=== PATIENT | female | born 1985 | race Asian ===

== ENCOUNTER → 2022-06-16 | Outpatient (CLI) | payer OTHER ==
[2022-06-16 17:17] LABS: HCG,Qualitative Serum Not Detected
[2022-06-16 22:55] LABS: Estradiol 25.9 pg/mL; Follicle Stimulating Hormone 5.9 mIU/mL; Luteinizing Hormone 16.1 mIU/mL
== END | disposition home or self-care (01) ==
LOC: LABWHC1 16:06
DX: N97.9 Female infertility, unspecified (principal)
CPT/HCPCS: 36415; 82670; 83001; 83002; 84144; 84703

== ENCOUNTER → 2023-01-25 | Outpatient (CLI) | payer OTHER ==
--- NOTE | 2023-01-30 19:44 | MM ---
Reason for Exam: Screening (asymptomatic). Last screening mammogram was performed 12 month(s) ago. Patient History: Menarche at age 13. First Full-Term at age 36. Late child-bearing (after 30). Premenopausal. Patient tested for BRCA2 outcome was positive. US breast needle core RT on the Right side. Paternal aunt had ovarian cancer under age 50. Paternal cousin had breast cancer under age 50. Prior Study Comparison: 01/28/2022 Bilateral Screening Mammogram, [facility]. Tissue Density: There are scattered fibroglandular densities. Findings: Analyzed By CAD. Microclip central posterior aspect of the right breast from prior biopsy. There is no suspicious group of microcalcifications or new suspicious mass in either breast. Overall Assessment: Negative, BI-RAD 1 Management: Screening Mammogram of both breasts in 1 year. See note below regarding increased lifetime risk. Patient should continue monthly self-breast exams. A clinical breast exam by your physician is recommended on an annual basis. This exam should not preclude additional follow-up of suspicious palpable abnormalities. Note on lifetime risk: If overall lifetime risk for the development of breast cancer is 20% or higher, the patient may qualify for future screening with alternating mammogram and breast MRI. Electronically signed and approved by: Nemesio Tyson M.D. Radiologist
== END | disposition home or self-care (01) ==
LOC: RADMAMWWP 14:40
PROVIDERS: ATTEND Surgery
DX: Z12.31 Encounter for screening mammogram for malignant neoplasm of breast (principal); Z80.3 Family history of malignant neoplasm of breast
CPT/HCPCS: 77063; 77067

== ENCOUNTER → 2023-02-02 | Outpatient (CLI) | payer OTHER ==
--- NOTE | 2023-02-02 15:44 | P.GSHP ---
History of Present Illness H&P Date: 02/02/23 Chief Complaint: BRCA2 mutation Iesha is a 38 year old female who had a bilateral mammogram on 01-25-23 which was BIRAD 1. She had genetic testing done in September 2011 and was found to carry a mutation in the BRCA2 gene. This was done as a paternal cousin was diagnosed with breast cancer at 34, and was noted to be BRCA2 positive. She has not felt any lumps masses or nodules of concern in either breast. She had a breast biopsy when she was 11 months , this was a needle core biopsy and it was benign. She is not complaining of any nipple discharge or skin changes. She is not complaining of any trauma or infection in her breast. She moved in 2021 from [place] where she was following with a breast surgeon, Vero Toledo. At that time she was having yearly mammograms. Caffeine: 1 cup coffee/day nicotine: never chocolate: occasional BCP: used them in her teens, visiting a fertility specialist used it last year was Family History: paternal cousin: breast cancer at 34 BRCA 2 + paternal aunt: ovarian cancer mother: uterine cancer Hormonal History: menarche: 13 , age at first :36, breast fed: yes periods irregular has cystic ovarian disease control pills: Used them in her teens, and use them when she was visiting a fertility specialist the last time was approximately a year ago Hormones: none Surgical history: left adrenalectomy 2016 [place] disease ([facility]) Medical History: Cystic ovarian disease Social History: nicotine: none Heart: Negative Drugs:negative - Constitutional Constitutional: Denies chills, Denies fever - EENT Eyes: denies blurred vision, denies pain Ears: deny: decreased hearing, tinnitus Ears, nose, mouth and throat: Denies headache, Denies sore throat - Breasts Breasts: bilateral: as per HPI - Cardiovascular Cardiovascular: Denies chest pain, Denies shortness of breath - Respiratory Respiratory: Denies cough, Denies 7 - Gastrointestinal Gastrointestinal: Denies abdominal pain, Denies diarrhea, Denies nausea, Denies vomiting - Genitourinary (Female) Genitourinary: Denies dysuria, Denies hematuria - Menstruation Comment: LMP: January 18 last about 1 week Menstruation: Reports cycle variable - Musculoskeletal Musculoskeletal: Denies myalgias - Integumentary Comment: Eczema of the family, he has some itching over her lower shins - Neurological Neurological: Denies numbness, Denies weakness - Psychiatric Psychiatric: Reports anxiety - Endocrine Comment: hair loss Endocrine: Reports fatigue, Denies weight change - Hematologic/Lymphatic Comment: none - Allergic/Immunologic Allergic/Immunologic: Reports seasonal allergies Medications and Allergies Home Medications Medication Instructions Recorded Confirmed Type Fexofenadine HCl [Shabana Allergy] 1 tab PO DAILY 02/02/23 02/02/23 History Multivitamin [Multivitamins Adult 1 tab PO DAILY 02/02/23 02/02/23 History Gummies] metFORMIN HCL 500 mg PO DAILY 02/02/23 02/02/23 History Allergies Allergy/AdvReac Type Severity Reaction Status Date / Time metoclopramide [From Reglan] Allergy Unknown Unverified 02/02/23 14:50 Pork/Porcine Containing Allergy Unknown Unverified 02/02/23 14:50 Products Childhood [Pork] Surgical - Exam - General no distress - Eyes normal ocular movement - ENT no hearing loss - Neck trachea midline - Respiratory normal respiratory effort, clear to auscultation - Cardiovascular Rhythm: regular Heart Sounds: normal: S1, S2 - Abdomen Abdomen: soft, non tender, no guarding, no rigid, no rebound - Integumentary normal turgor - Neurologic no disoriented, no combative - Musculoskeletal normal gait, normal posture - Psychiatric oriented to time, oriented to person, oriented to place, speech is normal, memory intact Breast Exam: Bra: 36C Inspection: Bilateral grade 2 ptosis Palpation: Right breast: Multi-positional exam fibrocystic changes no dominant masses or nodules of concern Right axilla: No adenopathy of concern Left breast: Multi-positional exam fibrocystic changes no dominant masses or nodules of concern Left axilla: No adenopathy of concern Results Mammogram results reviewed from 6123 benign BIRADS 1 Assessment and Plan Assessment: Impression: 38-year-old BRCA2 positive patient for questions about surveillance, risk r eduction Plan: We have discussed the increased risk of breast and ovarian cancer. We have discussed the followin. Chemoprophylaxis with tamoxifen 2. Risk reducing surgery including bilateral salpingo-oophorectomy and bilateral mastectomy 3. Close surveillance with mammogram alternating with MRI every 6 months and clinical breast exams 4. Ovarian surveillance with every 6 month CEA 125 and transvaginal ultrasound At this time the patient would like to have another child. She does not want to do anything which would alter her ability to get . She would prefer to have close surveillance. We will therefore plan on: 1. Alternating MRI and mammogram every 6 months with clinical breast exam 2. Establish relationship with a etch operator semiconductor wafers to monitor for ovarian cancer 3. Appointment with lehr loader to more thoroughly reviewing her BRCA2 status 4. Patient to follow-up immediately if she notes anything of concern
[2023-02-02 15:47] VITALS: BP 121/78; PULSE 74; RESP 17; TEMP 98
== END ==
LOC: WWCWWP 13:28
PROVIDERS: ATTEND Surgery
DX: Z15.02 Genetic susceptibility to malignant neoplasm of ovary (principal); Z80.3 Family history of malignant neoplasm of breast; Z15.01 Genetic susceptibility to malignant neoplasm of breast; Z79.84 Long term (current) use of oral hypoglycemic drugs; Z88.8 Allergy status to other drugs, medicaments and biological substances; Z91.018 Allergy to other foods

== ENCOUNTER → 2023-04-04 | Outpatient (CLI) | payer OTHER ==
[2023-04-04 17:10] LABS: HCT 33.8 % (37.2-46.3); MCH 28.8 pg (27.0-32.0); MCHC 32.5 d/dL (32.0-37.0); MCV 88.5 FL (80.0-97.0); Mean Platelet Volume 11.8 FL (9.5-12.2); NRBC Per 100 WBC 0 X 10*3/uL (0.00-0.01); Platelet Count 252 X 10*3/uL (140-440); RBC 3.82 X 10*6/uL (4.10-5.20); RDW 13.7 % (11.5-14.5); WBC 6.14 X 10*3/uL (4.50-10.00)
[2023-04-04 17:33] LABS: ALT 13 U/L (8-44); AST 15 U/L (13-35); Albumin 4.5 d/dL (3.8-4.9); Albumin/Globulin Ratio 1.61 Ratio (1.60-3.17); Alkaline Phosphatase 60 U/L (41-126); BUN/Creat Ratio 16.67 Ratio (12.00-20.00); Calcium 9.4 mg/dL (8.7-10.3); Carbon Dioxide 23.5 mmol/L (21.6-31.8); Chloride 106 mmol/L (96-109); Globulin 2.8 d/dL (1.6-3.3); Glucose 90 mg/dL (70-110); Potassium 4.1 mmol/L (3.5-5.5); Sodium 139 mmol/L (135-145); T4, Free (Free Thyroxine) 1.45 ng/dL (0.80-1.80); Total Bilirubin 0.4 mg/dL (0.3-1.2); Total Protein 7.3 d/dL (6.2-8.2)
[2023-04-05 21:23] LABS: ACTH 11.7 pg/mL (0.00-45.99)
== END | disposition home or self-care (01) ==
LOC: LABWHC1 11:59
PROVIDERS: ATTEND Internal Medicine Endocrinology, Diabetes & Metabolism
DX: E24.0 Pituitary-dependent Cushing's disease (principal); N91.2 Amenorrhea, unspecified; R53.83 Other fatigue
CPT/HCPCS: 36415; 80053; 82024; 82533; 82607; 82627; 83036; 83498; 84146; 84305; 84439; 84443; 84480; 85027

== ENCOUNTER → 2023-04-09 | Outpatient (CLI) | payer OTHER ==
[2023-04-09 19:16] LABS: Basophils # (A) 0.03 X 10*3/uL (0.00-0.10); Basophils % (A) 0.6 %; Eosinophils # (A) 0.26 X 10*3/uL (0.04-0.35); Eosinophils % (A) 5.4 %; HCT 35.9 % (37.2-46.3); HGB 11.5 d/dL (12.0-15.0); Lymphocytes # (A) 1.45 X 10*3/uL (0.90-5.00); MCH 28.3 pg (27.0-32.0); MCV 88.4 FL (80.0-97.0); Mean Platelet Volume 11.4 FL (9.5-12.2); Monocytes # (A) 0.42 X 10*3/uL (0.20-1.00); Monocytes % (A) 8.7 %; NRBC Per 100 WBC 0 X 10*3/uL (0.00-0.01); Neutrophils # (A) 2.66 X 10*3/uL (1.80-7.70); Neutrophils % (A) 55.1 %; Platelet Count 271 X 10*3/uL (140-440); RBC 4.06 X 10*6/uL (4.10-5.20); RDW 13.4 % (11.5-14.5); WBC 4.83 X 10*3/uL (4.50-10.00)
[2023-04-09 20:20] LABS: % Iron Saturation 15.31 (12.00-45.00); Ferritin 78.8 ng/mL (10.0-291.0)
== END | disposition home or self-care (01) ==
LOC: LABWHC1 11:27
PROVIDERS: ATTEND Internal Medicine Endocrinology, Diabetes & Metabolism
DX: E61.1 Iron deficiency (principal); D53.8 Other specified nutritional anemias; R53.83 Other fatigue
CPT/HCPCS: 36415; 82180; 82306; 82728; 82746; 83540; 83550; 85025

== ENCOUNTER → 2023-08-08 | Outpatient (CLI) | payer OTHER ==
--- NOTE | 2023-08-13 08:21 | BMR ---
EXAM DATE: 08/09/2023 EXAM DESCRIPTION: MRI-Breast Bilat (W/WO Contrast) INDICATION: Genetic susceptibility to breast cancer (BRCA2 mutation positive). High-risk screening. COMPARISON: Prior examination dated 01/25/2023 CONTRAST: 10.8 cc Gadavist contrast material. TECHNIQUE: Multi sequence multiplanar MR imaging of the breasts was obtained. Subsequently, after the uneventful intravenous administration of Gadavist contrast material, 6 dynamic sequences were then obtained. Post processing was performed utilizing a [employer] CAD workstation. FINDINGS: The breasts are composed of scattered fibroglandular tissue. There is mild background parenchymal enhancement identified. T1 weighted images demonstrated no axillary or internal mammary lymphadenopathy. No focal skin thickening or nipple retraction. The bone marrow signal intensity is unremarkable. No adenopathy in the visualized mediastinum. T2 weighted images demonstrated no dominant cystic lesion in either breast. Post contrast images demonstrated an ill-defined non mass progressive and persistent enhancement in the inferolateral quadrant of right posterior breast 9 cm posterior to the nipple measuring 1.8 x 1.0 x 1.0 cm (603 image 34 and series 504, image 359) with bright signal intensity on corresponding T2 weighted images. No abnormal enhancement in the right breast to suggest malignancy prior There is no abnormal signal or enhancement in the chest wall or subcutaneous tissue. IMPRESSION: 1. A 1.8 x 1.0 cm non mass enhancement in the inferolateral quadrant of right posterior breast 9 cm posterior to the nipple. Correlate with second-look ultrasound examination with possible biopsy. If there is no sonographic correlation, MRI guided biopsy should be performed for further evaluation. 2. No MR evidence of malignancy in the left breast. 3. No axillary or internal mammary lymphadenopathy. MTDD
== END | disposition home or self-care (01) ==
LOC: RADMRIMAIN 14:57
PROVIDERS: ATTEND Surgery
DX: Z15.01 Genetic susceptibility to malignant neoplasm of breast (principal); Z15.02 Genetic susceptibility to malignant neoplasm of ovary; R91.8 Other nonspecific abnormal finding of lung field
CPT/HCPCS: 77049; A9585

== ENCOUNTER → 2023-08-16 | Outpatient (CLI) | payer OTHER ==
--- NOTE | 2023-08-16 17:25 | P.PN ---
Subjective Progress Note Date: 08/16/23 Principal diagnosis: abnormal right breast MRI; BRCA2 (+) History of Present Illness H&P Date: 08-16-23 Chief Complaint: BRCA2 mutation Iesha is a 38 year old female who had a bilateral mammogram on 01-25-23 which was BIRAD 1. She had genetic testing done in September 2011 and was found to carry a mutation in the BRCA2 gene. This was done as a paternal cousin was diagnosed with breast cancer at 34, and was noted to be BRCA2 positive. She has not felt any lumps masses or nodules of concern in either breast. She had a breast biopsy when she was 11 months , this was a needle core biopsy and it was benign. She is not complaining of any nipple discharge or skin changes. She is not complaining of any trauma or infection in her breast. She moved in 2021 from [place] where she was following with a breast surgeon, Vero Toledo. At that time she was having yearly mammograms. She does not feel anything of concern in her breast. A bilateral breast MRI on [id number]. In the right breast was a 1.8 x 1 cm area of non-mass enhancement. No lesions of concern were identified in the left breast. This was reviewed personally with Dr. Tyson. Ultrasound targeted to the area on [id number] which did not reproduce anything of concern. She has seen DR. Liu from [facility], she has irregular periods and completed a 3 month course of Provera.Se had a CA 125 ? vaginal ultrasound The patient recently started BuSpar and Zoloft. Caffeine: 1 cup coffee/day nicotine: never chocolate: occasional BCP: used them in her teens, visiting a fertility specialist used it last year was Family History: paternal cousin: breast cancer at 34 BRCA 2 + paternal aunt: ovarian cancer mother: uterine cancer Hormonal History: menarche: 13 , age at first :36, breast fed: yes periods irregular has cystic ovarian disease control pills: Used them in her teens, and use them when she was visiting a fertility specialist the last time was approximately a year ago Hormones: none Surgical history: 2020 left adrenalectomy 2016 [place] disease ([facility]) Medical History: Cystic ovarian disease anemia Social History: nicotine: none Heart: Negative Drugs:negative - Constitutional Constitutional: Denies chills, Denies fever - EENT Eyes: denies blurred vision, denies pain Ears: deny: decreased hearing, tinnitus Ears, nose, mouth and throat: Denies headache, Denies sore throat - Breasts Breasts: bilateral: as per HPI - Cardiovascular Cardiovascular: Denies chest pain, Denies shortness of breath - Respiratory Respiratory: Denies cough - Gastrointestinal Gastrointestinal: Denies abdominal pain, Denies diarrhea, Denies nausea, Denies vomiting - Genitourinary (Female) Genitourinary: Denies dysuria, Denies hematuria - Menstruation Comment: LMP: January 18 last about 1 week Menstruation: Reports cycle variable - Musculoskeletal Musculoskeletal: Denies myalgias - Integumentary Comment: Eczema of the family, he has some itching over her lower shins - Neurological Neurological: Denies numbness, Denies weakness - Psychiatric Psychiatric: Reports anxiety - Endocrine Comment: hair loss Endocrine: Reports fatigue, Denies weight change - Hematologic/Lymphatic Comment: none - Allergic/Immunologic Allergic/Immunologic: Reports seasonal allergies Medications and Allergies Home Medications Medication Instructions Recorded Confirmed Type Fexofenadine HCl [Shabana Allergy] 1 tab PO DAILY 02/02/23 02/02/23 History Multivitamin [Multivitamins Adult 1 tab PO DAILY 02/02/23 02/02/23 History Gummies] metFORMIN HCL 500 mg PO DAILY 02/02/23 02/02/23 History Allergies Allergy/AdvReac Type Severity Reaction Status Date / Time metoclopramide [From Reglan] Allergy Unknown Unverified 02/02/23 14:50 Pork/Porcine Containing Allergy Unknown Unverified 02/02/23 14:50 Products Childhood [Pork] Assessment and Plan Assessment: Impression: 38-year-old BRCA2 abnormal right breast MRI; 08-08-23 Plan: on her last visit we discussed the increased risk of breast and ovarian cancer. We have discussed the followin. Chemoprophylaxis with tamoxifen 2. Risk reducing surgery including bilateral salpingo-oophorectomy and bilateral mastectomy 3. Close surveillance with mammogram alternating with MRI every 6 months and clinical breast exams 4. Ovarian surveillance with every 6 month CEA 125 and transvaginal ultrasound At this time the patient would like to have another child. She does not want to do anything which would alter her ability to get . She would prefer to have close surveillance. We will therefore plan on: 1. Alternating MRI and mammogram every 6 months with clinical breast exam 2. Establish relationship with a pharmaceutical development technician to monitor for ovarian cancer 3. Appointment with chemical dependency professional to more thoroughly reviewing her BRCA2 status 4. Patient to follow-up immediately if she notes anything of concern 5. MRI guided right breast biopsy based on MRI from -, follow up after this is done 6. continue to follow with DR. Loja CC: [facility]
--- NOTE | 2023-08-16 19:55 | USB ---
Reason for Exam: Additional evaluation requested from prior study. Patient History: Menarche at age 13. First Full-Term at age 36. Late child-bearing (after 30). Premenopausal. Patient tested for BRCA2 outcome was positive. US breast needle core RT on the Right side. Paternal aunt had ovarian cancer under age 50. Paternal cousin had breast cancer under age 50. Technique: Method: Targeted. Prior Study Comparison: 01/28/2022 Bilateral Screening Mammogram, [facility]. 01/25/2023 Bilateral MG 3D screening mammo w/cad, [facility]. 08/08/2023 Bilateral MR breast bilat wo/w con, [facility]. Findings: The lower outer quadrant of the right breast, the axilla of the right breast and the retroareolar of the right breast were scanned. Targeted ultrasound right breast from 6:00 to 10:00 including scanning of the subareolar region and axilla. No solid or cystic lesion is seen. No discrete correlate for the MRI abnormality. No axillary lymphadenopathy or duct ectasia. Overall Assessment: Suspicious, BI-RAD 4 Management: MRI-guided biopsy of the right breast. Results were given to the patient verbally at the time of exam. Electronically signed and approved by: Nemesio Tyson M.D. Radiologist
== END | disposition home or self-care (01) ==
LOC: RADUSWWP 15:01
PROVIDERS: ATTEND Surgery
DX: R92.8 Other abnormal and inconclusive findings on diagnostic imaging of breast (principal); Z80.3 Family history of malignant neoplasm of breast

== ENCOUNTER → 2023-10-18 | Outpatient (CLI) | payer OTHER ==
--- NOTE | 2023-10-18 13:10 | P.PN ---
Subjective Progress Note Date: 10/18/23 Principal diagnosis: BRCA2 mutation Iesha is a 38 year old female 2 mutation. She underwent a screening MRI which revealed a lesion of concern in the right breast. She subsequently underwent a right breast MRI guided biopsy. It was felt to be benign concordant. Pathology revealed benign breast parenchyma with focal fibroadenomatous features. A 12-month follow-up MRI was recommended. The patient's radiographs were reviewed with Dr. Tyson. There is some concern that there was clip migration and that the area of concern was adequately sampled. I have discussed this with the radiologist at [facility] Dr. Reece. The correct area was biopsied a repeat MRI has been suggested. She is interested in bilateral mastectomy and would like to have a BRIDGET reconstruction. She is scheduled to speak to a plastic surgeon in [place] and one in [place]. Objective - Vital Signs Vital signs: Vital Signs Temp Pulse 78 10/18/23 12:37 Resp 17 10/18/23 12:37 BP 124/80 10/18/23 12:37 Pulse Ox 97 10/18/23 12:37 FiO2 Intake & Output 10/17/23 10/18/23 10/18/23 18:59 06:59 18:59 Weight 68.039 kg - Constitutional General appearance: Present: cooperative - EENT Eyes: Present: EOMI ENT: Present: hearing grossly normal - Neck Neck: Present: normal ROM - Respiratory Respiratory: bilateral: CTA - Integumentary Integumentary Comment(s): Site right breast clean and dry no evidence of infection or hematoma Assessment and Plan Assessment: Impression: Patient BRCA2 positive status post MRI guided right breast biopsy reported as benign concordant Post biopsy images are not available and therefore after discussion with radiology a repeat MRI has been Plan: Repeat right breast MRI for clip placement and postbiopsy changes as we do not have post biopsy images The patient is considering bilateral mastectomy with reconstruction via a BRIDGET procedure the plastic surgeons that do this are in [place] and [place] and she has appointments to confer with them Patient to continue close surveillance if she opts not to have bilateral mastectomy follow with PRESCRIPTION CLERK LENSES regarding ovarian cancer CC: DR. Loja
[2023-10-18 13:15] VITALS: BP 124/80; PULSE 78; RESP 17
== END ==
LOC: WWCWWP 12:02
PROVIDERS: ATTEND Surgery
DX: L98.8 Other specified disorders of the skin and subcutaneous tissue (principal); D24.1 Benign neoplasm of right breast; Z15.01 Genetic susceptibility to malignant neoplasm of breast; Z15.02 Genetic susceptibility to malignant neoplasm of ovary; Z88.8 Allergy status to other drugs, medicaments and biological substances; Z91.014 Allergy to mammalian meats

== ENCOUNTER → 2023-12-20 | Outpatient (CLI) | payer OTHER ==
--- NOTE | 2023-12-22 17:45 | CT ---
EXAMINATION TYPE: CT angio abdomen pelvis DATE OF EXAM: 12/21/2023 COMPARISON: NONE HISTORY: 38-year-old female Z15.01, breast cancer gene, surgical planning for breast reconstruction TECHNIQUE: CT of the abdomen and pelvis before and after administration of 100 mL Isovue 370 IV contr ast. Coronal and sagittal reconstructions performed. 3-D reconstructions generated on a dedicated [employer] workstation. CT DLP: 1026.2 mGycm Automated exposure control for dose reduction was used. FINDINGS: The heart is normal size without pericardial effusion. Lung bases are clear without pleural effusion. Noncontrast and early arterial phase imaging of the liver, gallbladder, kidneys, spleen, and pancreas within normal limits. Subtle nodularity medial limb right adrenal gland measuring 8 mm, statistically representing a benign adrenal adenoma. Left adrenal gland surgically absent. Retroaortic left renal vein, normal anatomic variation. No dilated small bowel, free fluid, or free air. No mesenteric or retroperitoneal adenopathy. Normal appendix. No significant stool burden. No pericolonic inflammatory change. Moderate-sized fatty umbilical hernia measuring 4.0 cm wide. Small indirect left inguinal hernia. Bladder nondistended. Uterus is anteverted. Both ovaries are visualized. There is a crenulated periph erally enhancing structure within the right ovary measuring 2.3 cm, probable corpus luteum. There is a 1.4 cm cystic area along the right anterior lower uterine segment. Etiology unclear. Given additional area of soft tissue nodularity measuring 2.4 x 1.1 cm overlying the lower left rectus abd ominis muscle, consider sequela of prior . The bladder is collapsed. No abnormal fluid colle ction in the pelvis or pelvic lymphadenopathy. Vasculature: Normal caliber to the aorta. Normal and patent visceral artery branches. Aside from the retroaortic left renal vein, the arterial anatomy appears to be conventional and widely patent. Bones: Moderate degenerative disc L5-S1. Mild early facet spurring at this level as well. IMPRESSION: 1. PATENT ARTERIAL VASCULATURE AND CONVENTIONAL ANATOMY WITHIN THE ABDOMEN AND PELVIS. 2. MODERATE-SIZED FATTY UMBILICAL HERNIA MEASURING 4.0 CM WIDE. SMALL FAT-CONTAINING INDIRECT LEFT IN GUINAL HERNIA. 3. SUSPECT A 2.3 CM CORPUS LUTEUM OF THE RIGHT OVARY. CONSIDER FOLLOW-UP PELVIC ULTRASOUND IN 6-8 WEE KS TO ENSURE INVOLUTION. 4. A 1.4 CM CYSTIC AREA ALONG THE RIGHT ANTERIOR LOWER UTERINE SEGMENT. AN ADDITIONAL 2.4 CM SOFT TIS LUCA NODULE LEFT ANTERIOR PELVIS OVERLYING THE LOWER RECTUS ABDOMINOUS MUSCLE. POSSIBLE SEQUELA OF NAYELI OR . IF THERE IS ANY CYCLICAL PAIN LOCALIZED TO THIS REGION, DISPLACED ENDOMETRIAL TISSUE WO ULD BE IN THE DIFFERENTIAL. 5. SUBTLE 8 MM RIGHT ADRENAL NODULARITY MAY REPRESENT A TINY UNDERLYING ADRENAL ADENOMA.
== END | disposition home or self-care (01) ==
LOC: RADCTMAIN 16:51
PROVIDERS: ATTEND Surgery Plastic and Reconstructive Surgery
DX: C50.919 Malignant neoplasm of unspecified site of unspecified female breast (principal); K40.90 Unilateral inguinal hernia, without obstruction or gangrene, not specified as recurrent; K42.9 Umbilical hernia without obstruction or gangrene; Z15.01 Genetic susceptibility to malignant neoplasm of breast
CPT/HCPCS: 74174; Q9967

== ENCOUNTER → 2024-01-16 | Outpatient (CLI) | payer OTHER ==
[2024-01-16 18:31] LABS: Basophils # (A) 0.05 X 10*3/uL (0.00-0.10); Basophils % (A) 0.8 %; Eosinophils # (A) 0.21 X 10*3/uL (0.04-0.35); Eosinophils % (A) 3.4 %; HCT 36.4 % (37.2-46.3); HGB 12.3 g/dL (12.0-15.0); Lymphocytes # (A) 1.99 X 10*3/uL (0.90-5.00); Lymphocytes % (A) 32.3 %; MCH 28.8 pg (27.0-32.0); MCHC 33.8 g/dL (32.0-37.0); MCV 85.2 FL (80.0-97.0); Mean Platelet Volume 10.6 FL (9.5-12.2); Monocytes # (A) 0.55 X 10*3/uL (0.20-1.00); Monocytes % (A) 8.9 %; NRBC Per 100 WBC 0 X 10*3/uL (0.00-0.01); Neutrophils # (A) 3.35 X 10*3/uL (1.80-7.70); Neutrophils % (A) 54.4 %; Platelet Count 288 X 10*3/uL (140-440); RBC 4.27 X 10*6/uL (4.10-5.20); RDW 13.3 % (11.5-14.5); WBC 6.16 X 10*3/uL (4.50-10.00)
[2024-01-16 20:56] LABS: % Iron Saturation 15.32 (12.00-45.00); ALT 20 U/L (8-44); AST 18 U/L (13-35); Albumin 4.4 g/dL (3.8-4.9); Albumin/Globulin Ratio 1.42 Ratio (1.60-3.17); Alkaline Phosphatase 66 U/L (41-126); BUN/Creat Ratio 25.83 Ratio (12.00-20.00); Blood Urea Nitrogen 15.5 mg/dL (9.0-27.0); Calcium 9.9 mg/dL (8.7-10.3); Carbon Dioxide 22.7 mmol/L (21.6-31.8); Chloride 103 mmol/L (96-109); Globulin 3.1 g/dL (1.6-3.3); Glucose 79 mg/dL (70-110); Iron 51 UG/DL (50-170); Potassium 4.6 mmol/L (3.5-5.5); Sodium 137 mmol/L (135-145); T4, Free (Free Thyroxine) 1.49 ng/dL (0.80-1.80); Total Bilirubin 0.3 mg/dL (0.3-1.2); Total Iron Binding Capacity 333 UG/DL (228-460); Total Protein 7.5 g/dL (6.2-8.2)
== END | disposition home or self-care (01) ==
LOC: LABWHC1 14:17
PROVIDERS: ATTEND Internal Medicine Endocrinology, Diabetes & Metabolism
DX: N91.2 Amenorrhea, unspecified (principal); D53.8 Other specified nutritional anemias; E61.1 Iron deficiency; R53.83 Other fatigue; E24.0 Pituitary-dependent Cushing's disease
CPT/HCPCS: 36415; 80053; 82306; 82533; 82607; 82728; 82746; 83036; 83540; 83550; 84146; 84439; 84443; 84481; 85025

== ENCOUNTER → 2024-03-07 | Outpatient (CLI) | payer OTHER ==
--- NOTE | 2024-03-07 17:40 | MR ---
EXAMINATION TYPE: MR lumbar spine wo con DATE OF EXAM: 03/07/2024 COMPARISON: Recent CT 12/20/2023 HISTORY: 39 year old female M54.51, Chronic lower back pain, radiates into left leg TECHNIQUE: Multiplanar, multisequence images of the lumbar spine were acquired without IV contrast. FINDINGS: Vertebral body heights are preserved and alignment is maintained. Conus medullaris is normal. There is a cyst located behind the left-sided T11-T12 facet joint measuring 1.1 cm, probably a synovi al cyst incidentally seen. There is moderate degenerative disc disease at L5-S1 with desiccated, narrowed, and diffusely bulging disc. An annular fissure extends posteriorly to the left. There is associated edematous Modic type I endplate change also present here. At this level, there is a superimposed central and left paracentral disc extrusion. Superior migratio n of extruded disc material measuring 7 mm craniocaudal and 10 mm wide. There is abutment of the bila teral traversing S1 nerve roots though more so on the left side. Focal impression on the ventral the gabriele sac but without significant spinal canal stenosis. [id number] left and mild right neuroforaminal stenosis here at L5-S1. Along the other levels, no spinal canal or foraminal stenosis is seen. Prominent red marrow hyperplasia likely due to patient's relatively younger age but may also be seen with smoking, anemia, obesity, or chronic disease. IMPRESSION: 1. Moderate degenerative disc disease at L5-S1 with associated edematous Modic type I endplate change . 2. A superimposed central and left paracentral disc extrusion with superior migration of disc materia l here at L5-S1. Associated posterior annular fissure extending to the left. 3. Disc material abuts the bilateral traversing S1 nerve roots but more so on the left side. Mild to moderate left and mild right neuroforaminal stenosis here. 4. The disc herniation impresses on the ventral thecal sac but does not contribute to any significant spinal canal stenosis.
== END | disposition home or self-care (01) ==
LOC: RADMRIMAIN 13:30
PROVIDERS: ATTEND Physical Medicine & Rehabilitation
DX: M48.061 Spinal stenosis, lumbar region without neurogenic claudication (principal); M51.26 Other intervertebral disc displacement, lumbar region; M51.27 Other intervertebral disc displacement, lumbosacral region; M51.37 Other intervertebral disc degeneration, lumbosacral region; M51.17 Intervertebral disc disorders with radiculopathy, lumbosacral region
CPT/HCPCS: 72148

== ENCOUNTER → 2024-06-06 | Outpatient (CLI) | payer OTHER ==
[2024-06-06 10:56] LABS: ALT 17 U/L (8-44); AST 16 U/L (13-35); Albumin 4.2 g/dL (3.8-4.9); Albumin/Globulin Ratio 1.45 Ratio (1.60-3.17); Alkaline Phosphatase 72 U/L (41-126); Blood Urea Nitrogen 8.4 mg/dL (9.0-27.0); Carbon Dioxide 21.2 mmol/L (21.6-31.8); Chloride 107 mmol/L (96-109); Globulin 2.9 g/dL (1.6-3.3); Glucose 101 mg/dL (70-110); Potassium 4.5 mmol/L (3.5-5.5); Sodium 138 mmol/L (135-145); Total Bilirubin 0.2 mg/dL (0.3-1.2); Total Protein 7.1 g/dL (6.2-8.2)
== END | disposition home or self-care (01) ==
LOC: LABWHC1 07:30
PROVIDERS: ATTEND Internal Medicine Endocrinology, Diabetes & Metabolism
CPT/HCPCS: 36415; 80053; 82024; 82088; 82533; 83835; 84244

== ENCOUNTER → 2024-09-03 | Outpatient (CLI) | payer OTHER ==
--- NOTE | 2024-09-05 10:51 | MM ---
Reason for Exam: Additional evaluation requested from prior study. Last mammogram was performed 1 year(s) and 7 month(s) ago. Patient History: Menarche at age 13. First Full-Term at age 36. Late child-bearing (after 30). Premenopausal. Patient tested for BRCA2 outcome was positive. US breast needle core RT on the Right side. Paternal aunt had ovarian cancer under age 50. Paternal cousin had breast cancer under age 50. Tissue Density: There are scattered areas of fibroglandular density. Findings: Analyzed By CAD. There is no suspicious group of microcalcifications or new suspicious mass. Benign-appearing calcifications bilaterally. No new suspicious masses, calcifications or distortions. Overall Assessment: Benign, BI-RAD 2 Management: Screening Mammogram of both breasts in 1 year. Results were given to the patient verbally at the time of exam. Patient should continue monthly self-breast exams. A clinical breast exam by your physician is recommended on an annual basis. This exam should not preclude additional follow-up of suspicious palpable abnormalities. Note on Amber scores and lifetime risk: 1. A Amber score greater than 3% is considered moderate risk. If this is the case, consider specialist referral to assess eligibility for a risk reducing agent. 2. If overall lifetime risk for the development of breast cancer is 20% or higher, the patient may qualify for future screening with alternating mammogram and breast MRI. [facility], , 09/03/2024 3:23 PM. Electronically signed and approved by: Armando Dietz DO
== END | disposition home or self-care (01) ==
LOC: RADMAMWWP 14:06
PROVIDERS: ATTEND Surgery
DX: R92.8 Other abnormal and inconclusive findings on diagnostic imaging of breast (principal); Z80.3 Family history of malignant neoplasm of breast; R92.323 Mammographic fibroglandular density, bilateral breasts
CPT/HCPCS: 77062; 77066